=== PATIENT | female | born 1940 | race African-American/Black ===

== ENCOUNTER 2022-03-01 16:07 | Inpatient (IN) | payer MEDICARE, OTHER ==
[~2022-03-01] VITALS: Ht 154.9 cm; Wt 71.2 kg
[~2022-03-01 16:07] MED LIST: AMLO5TAB88 MT; BENA20TA10 MT; MELO-104 MT; NEBI5TAB3 MT
[2022-03-01] MEDS ORDERED: ALBUTEROL (0.083%) 2.5MG/3ML NEB HHN SCH (17:00)
[2022-03-01 17:31] LABS: BASOPHILS % 0.6 % (0.0-2.0); EOSINOPHILS % 1.3 % (0.0-5.0); HEMATOCRIT. 43.3 % (36.0-48.0); HEMOGLOBIN. 14.3 g/dL (12.0-16.0); LYMPHOCYTES % 34.3 % (20.0-50.0); MEAN CORPUSCULAR HEMOGLOBIN 29.4 pg (28.0-32.0); MEAN CORPUSCULAR VOLUME 89.1 fL (81.0-99.0); MEAN PLATELET VOLUME 9.5 fl (7.4-10.4); MONOCYTES % 11.3 % (2.0-8.0); NEUTROPHILS % 52.5 % (40.0-76.0); PLATELET 208 x1000/uL (130-400); RED BLOOD CELL COUNT 4.85 mill/uL (4.2-5.4); RED CELL DISTRIBUTION WIDTH 15.5 % (11.6-14.6)
[2022-03-01 17:34] LABS: CHLORIDE 111 mEq/L (98-107)
[2022-03-01] MEDS ORDERED: FUROSEMIDE 40MG/4ML VIAL IVP ONE (18:15)
[2022-03-01] MEDS ORDERED: METHYLPREDNISOLONE SOD SUCC 125 MG/2 ML VIAL IV ONE (18:30)
[2022-03-02 10:00] VITALS: BP 164/85
[2022-03-02] MEDS ORDERED: ONDANSETRON HCL 4MG/2ML INJ IV PRN (11:30)
[2022-03-02] MEDS ORDERED: DOCUSATE SODIUM 100MG CAPSULE PO PRN (11:30)
[2022-03-02] MEDS ORDERED: NA PHOS,M-B/NA PHOS,DI-BA ENEMA 118ML PR PRN (11:30)
[2022-03-02] MEDS ORDERED: ACETAMINOPHEN 650MG SUPP PR PRN (11:30)
[2022-03-02] MEDS ORDERED: MAGNESIUM/ALUMINUM HYDROXIDE/SIMETHICONE 30ML UDC PO PRN (11:30)
[2022-03-02] MEDS ORDERED: CEFTRIAXONE 1 G PREMIX 50 ML IV SCH (11:30)
[2022-03-02] MEDS ORDERED: HYDROCODONE/ACETAMINOPHEN 5/325MG TABLET PO PRN (11:30)
[2022-03-02] MEDS ORDERED: IPRATROPIUM/ALBUTEROL 0.5-3(2.5)MG/3ML NEB NEB PRN (11:30)
[2022-03-02] MEDS ORDERED: GUAIFENESIN 200MG/10ML SUGAR FREE UDC PO PRN (11:30)
[2022-03-02] MEDS ORDERED: LORAZEPAM 0.5MG TABLET PO PRN (11:30)
[2022-03-02] MEDS ORDERED: DIPHENHYDRAMINE 50MG/ML VIAL IV PRN (11:30)
[2022-03-02] MEDS ORDERED: ACETAMINOPHEN 325MG TABLET PO PRN (11:30)
[2022-03-02 12:00] VITALS: BP 151/74
[2022-03-02 13:24] LABS: BG CARBOXYHEMOGLOBIN 1.3 % (0.5-1.5); BG DEOXYHEMOGLOBIN 13.9 % (0.0-5.0); BG HCO3 ACT 24.4 mmol/L (22.0-26.0); BG METHEMOGLOBIN 0.2 % (0.0-1.5); BG OXYGEN SATURATION 85.9 % (92.0-98.5); BG OXYHEMOGLOBIN 84.6 % (94.0-97.0); BG PCO2 32.2 mmHg (35.0-45.0); BG PH 7.498 (7.350-7.450); BG PO2 48.9 mmHg (75.0-100.0); BG SAMPLE SITE RIGHT BRACHIAL; BG TOTAL HEMOGLOBIN 14.8 g/dL (12.0-18.0); BG VENT MODE ROOM AIR
[2022-03-02 13:28] LABS: INR 1.1; PROTHROMBIN TIME 11.3 sec (9.6-11.0)
[2022-03-02 13:42] LABS: CREATINE KINASE MB FRACTION 1.7 ng/mL (0.5-3.6)
[2022-03-02] MEDS: AZITHROMYCIN 500 MG in DEXT 5% WATER 250 ML IV SCH (14:15)
[2022-03-02] MEDS: METHYLPREDNISOLONE SOD SUCC 40 MG/ML VIAL IV SCH ×2 (14:15→21:13)
[2022-03-02 16:00] VITALS: BP 151/94
[2022-03-02] MEDS ORDERED: FUROSEMIDE 40MG/4ML VIAL IVP NR (16:15)
[2022-03-02] MEDS ORDERED: POTASSIUM CHLORIDE 20MEQ TABLET SR PO NR (16:30)
[2022-03-02] MEDS: CEFTRIAXONE 1,000 MG in DEXTROSE 5% WATER 50 ML IV SCH (18:35)
[2022-03-02] MEDS: ASPIRIN 81MG TABLET PO SCH (18:36)
[2022-03-02 20:00] VITALS: BP 187/111
[2022-03-02 20:42] LABS: BASOPHILS % 0.1 % (0.0-2.0); HEMATOCRIT. 42.2 % (36.0-48.0); HEMOGLOBIN. 14.2 g/dL (12.0-16.0); LYMPHOCYTES % 10.2 % (20.0-50.0); MEAN CORPUSCULAR HEMOGLOBIN 29.4 pg (28.0-32.0); MEAN CORPUSCULAR VOLUME 87.6 fL (81.0-99.0); MEAN PLATELET VOLUME 9.1 fl (7.4-10.4); MONOCYTES % 5.5 % (2.0-8.0); NEUTROPHILS % 84.2 % (40.0-76.0); PLATELET 202 x1000/uL (130-400); RED BLOOD CELL COUNT 4.82 mill/uL (4.2-5.4)
[2022-03-02 20:53] LABS: CHLORIDE 105 mEq/L (98-107)
[2022-03-02] MEDS: IPRATROPIUM/ALBUTEROL 0.5-3(2.5)MG/3ML NEB NEB SCH (20:54)
[2022-03-02] MEDS: ENOXAPARIN 40MG/0.4ML SYR SUBCUT SCH (21:13)
[2022-03-02] MEDS: CLONIDINE 0.1MG TABLET PO PRN (21:14)
[2022-03-02] MEDS: FAMOTIDINE 20MG TABLET PO SCH (21:14)
[2022-03-02 23:16] LABS: CREATINE KINASE MB FRACTION 1.8 ng/mL (0.5-3.6)
[2022-03-03] VITALS: BP 161/95
[2022-03-03] MEDS: CLONIDINE 0.1MG TABLET PO PRN (01:05)
[2022-03-03] MEDS: IPRATROPIUM/ALBUTEROL 0.5-3(2.5)MG/3ML NEB NEB SCH ×3 (01:09→16:13)
[2022-03-03 04:00] VITALS: BP 144/81
[2022-03-03] MEDS: METHYLPREDNISOLONE SOD SUCC 40 MG/ML VIAL IV SCH ×2 (05:23→15:04)
[2022-03-03 07:09] LABS: BASOPHILS % 0.1 % (0.0-2.0); HEMATOCRIT. 38.2 % (36.0-48.0); HEMOGLOBIN. 13.1 g/dL (12.0-16.0); LYMPHOCYTES % 11.1 % (20.0-50.0); MEAN CORPUSCULAR HEMOGLOBIN 29.6 pg (28.0-32.0); MEAN CORPUSCULAR VOLUME 86.2 fL (81.0-99.0); MEAN PLATELET VOLUME 9.1 fl (7.4-10.4); MONOCYTES % 4.6 % (2.0-8.0); NEUTROPHILS % 84.2 % (40.0-76.0); PLATELET 173 x1000/uL (130-400); RED BLOOD CELL COUNT 4.44 mill/uL (4.2-5.4); RED CELL DISTRIBUTION WIDTH 14.9 % (11.6-14.6)
[2022-03-03 07:36] LABS: CHLORIDE 107 mEq/L (98-107)
[2022-03-03 07:48] LABS: LDL CHOLESTEROL 75 mg/dL (5-100)
[2022-03-03 07:50] LABS: HDL CHOLESTEROL 67 mg/dL (40-59)
[2022-03-03 08:00] VITALS: BP 141/69
[2022-03-03] MEDS: LOSARTAN POTASSIUM 25 MG TABLET PO SCH (09:00)
[2022-03-03] MEDS: ASPIRIN 81MG TABLET PO SCH (11:32)
[2022-03-03] MEDS: FUROSEMIDE 40MG/4ML VIAL IVP SCH (11:32)
[2022-03-03 12:00] VITALS: BP 116/66
[2022-03-03] MEDS: CEFTRIAXONE 1,000 MG in DEXTROSE 5% WATER 50 ML IV SCH (15:04)
[2022-03-03] MEDS: AZITHROMYCIN 500 MG in DEXT 5% WATER 250 ML IV SCH (15:04)
[2022-03-03 16:00] VITALS: BP 103/60
[2022-03-03] MEDS ORDERED: ASPI-1497 MT (16:09)
[2022-03-03] MEDS ORDERED: LOSA25TA3 MT (16:09)
[2022-03-03] MEDS ORDERED: P20 PO (16:09)
[2022-03-03] MEDS ORDERED: FURO-151 MT (16:09)
[2022-03-03] MEDS ORDERED: IPRA3AMP9 NEB (16:09)
[2022-03-03 20:00] VITALS: BP 125/95
[2022-03-03] MEDS: FAMOTIDINE 20MG TABLET PO SCH (21:02)
[2022-03-03] MEDS: ENOXAPARIN 40MG/0.4ML SYR SUBCUT SCH (21:05)
[2022-03-04] VITALS: BP 133/79
[2022-03-04 04:00] VITALS: BP 148/60
[2022-03-04 08:00] VITALS: BP 132/67
[2022-03-04] MEDS: IPRATROPIUM/ALBUTEROL 0.5-3(2.5)MG/3ML NEB NEB SCH ×3 (08:33→21:03)
[2022-03-04] MEDS: FUROSEMIDE 40MG/4ML VIAL IVP SCH (09:53)
[2022-03-04] MEDS: AZITHROMYCIN 500 MG TABLET PO SCH (09:54)
[2022-03-04] MEDS: METHYLPREDNISOLONE SOD SUCC 40 MG/ML VIAL IV SCH (09:54)
[2022-03-04] MEDS: LOSARTAN POTASSIUM 25 MG TABLET PO SCH (09:54)
[2022-03-04] MEDS: ASPIRIN 81MG TABLET PO SCH (09:54)
[2022-03-04 12:00] VITALS: BP 126/55
[2022-03-04] MEDS: CEFTRIAXONE 1,000 MG in DEXTROSE 5% WATER 50 ML IV SCH (14:33)
[2022-03-04 16:00] VITALS: BP 132/66
[2022-03-04 20:00] VITALS: BP 143/70
[2022-03-04] MEDS: FAMOTIDINE 20MG TABLET PO SCH (20:46)
[2022-03-04] MEDS: ENOXAPARIN 40MG/0.4ML SYR SUBCUT SCH (20:47)
[2022-03-05] VITALS: BP 127/80
[2022-03-05] MEDS: IPRATROPIUM/ALBUTEROL 0.5-3(2.5)MG/3ML NEB NEB SCH ×4 (02:27→20:48)
[2022-03-05 04:00] VITALS: BP 155/74
[2022-03-05 08:00] VITALS: BP 152/69
[2022-03-05] MEDS: FUROSEMIDE 40MG/4ML VIAL IVP SCH (09:14)
[2022-03-05] MEDS: ASPIRIN 81MG TABLET PO SCH (09:14)
[2022-03-05] MEDS: AZITHROMYCIN 500 MG TABLET PO SCH (09:14)
[2022-03-05] MEDS: LOSARTAN POTASSIUM 25 MG TABLET PO SCH (09:14)
[2022-03-05] MEDS: METHYLPREDNISOLONE SOD SUCC 40 MG/ML VIAL IV SCH (09:14)
[2022-03-05 12:00] VITALS: BP 136/51
[2022-03-05] MEDS: CEFTRIAXONE 1,000 MG in DEXTROSE 5% WATER 50 ML IV SCH (13:19)
[2022-03-05 16:00] VITALS: BP 130/72
[2022-03-05 20:00] VITALS: BP 133/80
[2022-03-05] MEDS: FAMOTIDINE 20MG TABLET PO SCH (20:47)
[2022-03-05] MEDS: ENOXAPARIN 40MG/0.4ML SYR SUBCUT SCH (20:48)
[2022-03-06] VITALS: BP 129/88
[2022-03-06] MEDS: IPRATROPIUM/ALBUTEROL 0.5-3(2.5)MG/3ML NEB NEB SCH ×4 (03:18→21:59)
[2022-03-06 04:00] VITALS: BP 146/62
[2022-03-06 07:54] LABS: HEMATOCRIT. 41.2 % (36.0-48.0); HEMOGLOBIN. 13.6 g/dL (12.0-16.0); MEAN CORPUSCULAR HEMOGLOBIN 29.1 pg (28.0-32.0); MEAN PLATELET VOLUME 9.5 fl (7.4-10.4); PLATELET 170 x1000/uL (130-400); RED BLOOD CELL COUNT 4.68 mill/uL (4.2-5.4)
[2022-03-06 08:00] VITALS: BP 160/67
[2022-03-06 08:03] LABS: CHLORIDE 105 mEq/L (98-107)
[2022-03-06] MEDS: METHYLPREDNISOLONE SOD SUCC 40 MG/ML VIAL IV SCH (08:43)
[2022-03-06] MEDS: FUROSEMIDE 40MG/4ML VIAL IVP SCH (08:44)
[2022-03-06] MEDS: ASPIRIN 81MG TABLET PO SCH (08:44)
[2022-03-06] MEDS: LOSARTAN POTASSIUM 25 MG TABLET PO SCH (08:44)
[2022-03-06] MEDS: AZITHROMYCIN 500 MG TABLET PO SCH (08:44)
[2022-03-06 12:00] VITALS: BP 147/76
[2022-03-06 14:21] LABS: PLATELET ESTIMATE NORMAL
[2022-03-06] MEDS ORDERED: POTASSIUM CHLORIDE 20MEQ TABLET SR PO SCH (14:30)
[2022-03-06] MEDS: CEFTRIAXONE 1,000 MG in DEXTROSE 5% WATER 50 ML IV SCH (14:40)
[2022-03-06 16:00] VITALS: BP 146/69
[2022-03-06 20:00] VITALS: BP 125/74
[2022-03-06] MEDS: FAMOTIDINE 20MG TABLET PO SCH (21:36)
[2022-03-06] MEDS: ENOXAPARIN 40MG/0.4ML SYR SUBCUT SCH (21:37)
[2022-03-07] VITALS: BP 120/70
[2022-03-07 04:00] VITALS: BP 151/85
[2022-03-07 07:50] LABS: HEMATOCRIT 40.7 % (36.0-48.0); HEMOGLOBIN 13.5 g/dL (12.0-16.0); MEAN CORPUSCULAR HEMOGLOBIN 29.3 pg (28.0-32.0); MEAN CORPUSCULAR VOLUME 87.9 fL (81.0-99.0); PLATELET 181 x1000/uL (130-400); RED BLOOD CELL COUNT 4.63 mill/uL (4.2-5.4); RED CELL DISTRIBUTION WIDTH 15.1 % (11.6-14.6)
[2022-03-07 08:00] VITALS: BP 139/73
[2022-03-07 08:00] LABS: CHLORIDE 106 mEq/L (98-107)
[2022-03-07] MEDS: IPRATROPIUM/ALBUTEROL 0.5-3(2.5)MG/3ML NEB NEB SCH ×2 (08:40→14:18)
[2022-03-07] MEDS: LOSARTAN POTASSIUM 25 MG TABLET PO SCH (09:43)
[2022-03-07] MEDS: ASPIRIN 81MG TABLET PO SCH (09:43)
[2022-03-07] MEDS: METHYLPREDNISOLONE SOD SUCC 40 MG/ML VIAL IV SCH (09:43)
[2022-03-07] MEDS: FUROSEMIDE 40MG/4ML VIAL IVP SCH (09:43)
[2022-03-07 12:00] VITALS: BP 138/68
[2022-03-07 14:02] VITALS: BP 145/73
== END 2022-03-07 15:10 | disposition home or self-care (01) | DRG 291 ==
LOC: ER 16:07 → MICUSO 21:33 → EDBEDREQTM 21:46 → EDBEDREQ 21:46 → 7EST 03-02 09:06
PROVIDERS: ADMIT Internal Medicine; ATTEND Internal Medicine
DX: I11.0 Hypertensive heart disease with heart failure (principal); J96.01 Acute respiratory failure with hypoxia; I50.43 Acute on chronic combined systolic (congestive) and diastolic (congestive) heart failure; J44.1 Chronic obstructive pulmonary disease with (acute) exacerbation; J84.9 Interstitial pulmonary disease, unspecified; E87.6 Hypokalemia; E78.5 Hyperlipidemia, unspecified; E78.00 Pure hypercholesterolemia, unspecified; F17.210 Nicotine dependence, cigarettes, uncomplicated; I35.1 Nonrheumatic aortic (valve) insufficiency; Z79.82 Long term (current) use of aspirin; Z79.899 Other long term (current) drug therapy; Z82.49 Family history of ischemic heart disease and other diseases of the circulatory system; Z90.710 Acquired absence of both cervix and uterus
CPT/HCPCS: 36415; 36600; 71045; 71275; 80048; 80053; 80061; 82375; 82550; 82553; 82805; 83735; 83880; 84443; 84484; 85025; 85027; 93005; 93306; 93970; 94640; 97162; 99291; J0456; J0696; J1650; J1940; J2920; J2930; J7040; J7060